=== PATIENT | female | born 1955 | race Caucasian/White ===

== ENCOUNTER → 2017-03-06 | Outpatient (CLI) | payer BC | LOC: MC.RAD 13:53 | DX: Z12.31 Encounter for screening mammogram for malignant neoplasm of breast (principal) ==

== ENCOUNTER 2018-03-25 10:29 | Day surgery (SDC) | payer BC ==
[~2018-03-25] VITALS: Ht 167.6 cm; Wt 62.7 kg
[2018-03-25 11:23] VITALS: BP 140/87; PULSE 70; TEMP 98.1
[2018-03-25] MEDS ORDERED: LEXAPRO 10MG10 MG PO (11:29)
[2018-03-25] MEDS ORDERED: CLARITIN 1010 MG/TAB PO (11:30)
[2018-03-25] MEDS ORDERED: ESTRACE0.1 MG/GM VG (11:31)
[2018-03-25] MEDS ORDERED: IRON TABLETS325 MG PO (11:32)
[2018-03-25] MEDS ORDERED: VITAMIN B12 1541 TAB PO (11:32)
[2018-03-25] MEDS ORDERED: ALEVE 220MG220 MG PO (11:33)
[2018-03-25] MEDS ORDERED: TYLENOL 500MG500 MG PO (11:33)
[2018-03-25] MEDS ORDERED: FLONASEALLERGY NS (11:35)
[2018-03-25] MEDS ORDERED: COLACE 100100 MG/CAP PO (15:02)
[2018-03-25] MEDS ORDERED: MOTRIN 600600 MG/TAB PO (15:02)
[2018-03-25] MEDS ORDERED: ROXICODONE 55 MG/TAB PO (15:03)
[2018-03-25 15:15] VITALS: BP 134/77; PULSE 58; TEMP 98.3
[2018-03-25 15:30] VITALS: BP 129/73; PULSE 60
[2018-03-25 15:45] VITALS: BP 130/73; PULSE 60
[2018-03-25 16:00] VITALS: BP 130/76; PULSE 62
[2018-03-25 16:30] VITALS: BP 138/80; PULSE 66
== END 2018-03-25 17:24 | disposition home or self-care (01) ==
LOC: SDCO 10:29
DX: K40.20 Bilateral inguinal hernia, without obstruction or gangrene, not specified as recurrent (principal); F32.9 Major depressive disorder, single episode, unspecified; M13.842 Other specified arthritis, left hand; M13.841 Other specified arthritis, right hand; G43.909 Migraine, unspecified, not intractable, without status migrainosus; Z88.2 Allergy status to sulfonamides; Z87.19 Personal history of other diseases of the digestive system; Z82.61 Family history of arthritis; Z82.62 Family history of osteoporosis; Z80.6 Family history of leukemia
CPT/HCPCS: C1781; J0690; J1100; J1885; J2405; J2704; J2710; J3010; J7120

== ENCOUNTER → 2018-05-17 | Outpatient (CLI) | payer BC ==
[~2018-05-17] MED LIST: ALEVE 220MG220 MG PO; CLARITIN 1010 MG/TAB PO; COLACE 100100 MG/CAP PO; ESTRACE0.1 MG/GM VG; FLONASEALLERGY NS; IRON TABLETS325 MG PO; LEXAPRO 10MG10 MG PO; MOTRIN 600600 MG/TAB PO; ROXICODONE 55 MG/TAB PO; TYLENOL 500MG500 MG PO; VITAMIN B12 1541 TAB PO
== END ==
LOC: MC.RAD 11:16
DX: Z12.31 Encounter for screening mammogram for malignant neoplasm of breast (principal)

== ENCOUNTER → 2019-05-19 | Outpatient (CLI) | payer BC | LOC: MC.RAD 08:00 | DX: Z12.31 Encounter for screening mammogram for malignant neoplasm of breast (principal) ==

== ENCOUNTER → 2021-03-18 | Outpatient (CLI) | payer MEDICARE, OTHER | LOC: MC.RAD 09:55 | DX: Z12.31 Encounter for screening mammogram for malignant neoplasm of breast (principal); N64.89 Other specified disorders of breast ==

== ENCOUNTER → 2021-03-22 | Outpatient (CLI) | payer MEDICARE, OTHER | LOC: MC.RAD 07:57 | DX: N64.89 Other specified disorders of breast (principal) ==

== ENCOUNTER 2021-09-20 14:00 | Outpatient (RCR) | payer MEDICARE, OTHER | END 2021-09-26 | disposition home or self-care (01) | LOC: WSOT | DX: R20.2 Paresthesia of skin (principal) ==

== ENCOUNTER → 2022-03-20 | Outpatient (CLI) | payer MEDICARE, OTHER | LOC: MC.RAD 07:57 | DX: Z12.31 Encounter for screening mammogram for malignant neoplasm of breast (principal) ==